=== PATIENT | female | born 1970 | race Caucasian/White ===

== ENCOUNTER → 2017-08-12 11:22 | Outpatient (CLI) | payer OTHER, SELFPAY | PROVIDERS: Visit Provider Obstetrics & Gynecology | DX: Z12.4 Encounter for screening for malignant neoplasm of cervix (principal) | CPT/HCPCS: 88175; G0145 ==

== ENCOUNTER → 2022-12-04 | Outpatient (CLI) | payer SELFPAY, OTHER ==
--- NOTE | 2022-12-04 13:47 | CT_ITS ---
STUDY: CT PELVIS/HIPS AND KNEES REASON FOR EXAM: Female, 52 years old. Templating for right total hip arthroplasty. [facility] protocol. RADIATION DOSAGE (If Supplied By Facility): CTDIvol = ( 13.00 ) mGy, DLP = ( 697.67 ) mGycm TECHNIQUE: Transaxial CT imaging of the pelvis/hips and knees were performed. Coronal and sagittal images were reformatted. Additional axial CT was performed through the pelvis/hips Individualized dose optimization techniques were used for this CT. COMPARISON: Right hip radiographs dated 11/11/2022. FINDINGS: There is severe degenerative arthrosis of the right hip joint with [id number] superiorly, marginal osteophyte formation, articular surface flattening/collapse of the right superior femoral head, and subchondral sclerosis/cyst formation. There is small osseous fragmentation adjacent to the lateral aspect of the right superior acetabulum. There is mild degenerative arthrosis of the left hip joint with tiny marginal osteophyte formation. Normal visualized sacrum, iliac wings, and sacroiliac joints Normal superior and inferior pubic rami. There is minimal pubic symphysis arthrosis. Normal ischial tuberosities bilaterally. Normal knee joints bilaterally. CT/Extremity Lower without Contra IMPRESSION: Severe degenerative arthrosis of the right hip joint with [id number] superiorly, marginal osteophyte formation, articular surface flattening/collapse of the right superior femoral head, and subchondral sclerosis/cyst formation. Small osseous fragmentation adjacent to the lateral aspect of the right superior acetabulum. Mild degenerative arthrosis of the left hip joint. Electronically Signed: Greyson Harris MD at 15:54 EDT ,
== END | disposition home or self-care (01) ==
LOC: CT 13:46
PROVIDERS: PCP Family Medicine; Referring Provider Orthopaedic Surgery; Visit Provider Orthopaedic Surgery
DX: M16.11 Unilateral primary osteoarthritis, right hip (principal)
CPT/HCPCS: 73700

== ENCOUNTER → 2023-02-07 | Outpatient (CLI) | payer SELFPAY, OTHER ==
--- NOTE | 2023-02-07 13:47 | CT_ITS ---
STUDY: CT CHEST WITH T WITHOUT CONTRAST REASON FOR EXAM: Female, 53 years old. ELEVATED BP READING. Cardiac over read examination. RADIATION DOSAGE (If Supplied By Facility): CTDIvol = ( 25.43 ) mGy, DLP = ( 1085.84 ) mGycm TECHNIQUE: Transaxial imaging was performed pre and post intravenous administration of . Individualized dose optimization techniques were used for this CT. COMPARISON: No relevant priors. FINDINGS: CHEST The lungs are normal. There is no demonstrated pleural abnormality. Normal heart and pericardium. Normal mediastinum. Normal hilar regions. Normal unenhanced pulmonary arteries. Normal aorta arch and descending thoracic aorta. Normal osseous structures. There is no demonstrated abnormality of the visualized upper abdomen. CT/Limited Chest CT Cardiac Only IMPRESSION: Normal unenhanced and enhanced CT chest examination. Electronically Signed: Tom España MD at 12:59 EST ,
[2023-02-07 13:55] VITALS: BP 161/102; PULSE 73; RESP 14; O2SAT 99; BMI 23.1
[2023-02-07 14:10] VITALS: PULSE 74
[2023-02-07] MEDS: Nitroglycerin SL (ED/IMG/CATH) 0.4 MG TABLET SL (14:10)
[2023-02-07 14:16] VITALS: BP 144/92; PULSE 74; RESP 14; O2SAT 99
[2023-02-07 14:30] LABS: Cholesterol 227 mg/dL (200); High Density Lipoprotein 68 mg/dL; Triglycerides 169 mg/dL; Very Low Density Lipoprotein 34 mg/dL (5-40)
--- NOTE | 2023-02-09 12:43 | CCTA.WCONT ---
CCTA w/Cont Coronary Arteries Date of Study:: 02/07/23 Elevated blood pressure Coronary Calcium Scoring: High-resolution Computed Tomographic imaging of the chest was performed on [02/07/2023], with particular attention paid to the coronary arteries. Intravenous contrast agent was administered per protocol and images reconstructed and displayed. LEFT MAIN CORONARY ARTERY: No significant stenosis noted bifurcating into the left anterior descending artery and left anterior descending artery [] LEFT ANTERIOR DESCENDING CORONARY ARTERY: No significant stenosis noted within this vessel [] LEFT CIRCUMFLEX CORONARY ARTERY: No significant atherosclerotic plaquing [] RIGHT CORONARY ARTERY: Dominant vessel with no significant atherosclerotic plaquing [] CORONARY CALCIUM SCORE: [address] angio demonstrating no significant atherosclerotic plaquing and a coronary calcium score of 0. []
== END | disposition home or self-care (01) ==
PROVIDERS: PCP Family Medicine; Referring Provider Internal Medicine Cardiovascular Disease; Visit Provider Internal Medicine Cardiovascular Disease
DX: R94.31 Abnormal electrocardiogram [ECG] [EKG] (principal); R94.39 Abnormal result of other cardiovascular function study; E78.5 Hyperlipidemia, unspecified; R03.0 Elevated blood-pressure reading, without diagnosis of hypertension
CPT/HCPCS: 75571; 75574; 76380; 80061; Q9967

== ENCOUNTER → 2023-03-07 | Outpatient (CLI) | payer OTHER, SELFPAY ==
--- NOTE | 2023-03-07 | HIP_PTH ---
PATIENT: RAYA COHEN LOC: [facility] U#:[id number] AGE/SX: 53/F ROOM: RE03/07/[address]: Dr. Benedicto Kulkarni MD : 1970 BED: DIS: 03/07/2023 SPEC #: [id number] RECD: 03/11/23 08:12 STATUS: ZOFIA REBlue #: [id number] ROSENDO: 03/07/23 00:[address]: Benedicto Kulkarni DEPT: SURGICAL PATHOLOGY RECD BY: Manisha Hammer ENTERED: 03/11/23 08:12 SP TYPE: TOTAL HIP OTHR DR: Dr. 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 Synovium with reactive and reparative change. AM:christina 03/14/2023 MICROSCOPIC DESCRIPTION Slides are reviewed. GROSS DESCRIPTION Received is one container labeled with the patient's name and designated right hip bone. The specimen consists of a markedly deformed rock femoral head measuring 5.5 x 5.5 x 3.0 cm. The articular surface displays prominent osteophyte formation, eburnation and bone erosion. Also present in the specimen container is a detached piece of bone measuring 4.5 x 3.0 x 1.0 cm. The pink-yellow soft tissue measures in aggregate 8.5 x 7.0 x 2.5 cm. Bone Crusher sections are submitted in three cassettes as follows: 1 - soft tissue, 2 & 3 - femoral head after decalcification. / SJ:christina 03/11/2023 TC:5 CPT: 44084, 12144
== END | disposition home or self-care (01) ==
LOC: LABSPEC 16:36
PROVIDERS: PCP Family Medicine; Referring Provider Specialist; Visit Provider Specialist
DX: M16.11 Unilateral primary osteoarthritis, right hip (principal)
CPT/HCPCS: 88305; 88311